=== PATIENT | male | born 1960 | race Caucasian/White ===

== ENCOUNTER → 2024-06-11 | Outpatient (CLI) | payer BC ==
--- NOTE | 2024-06-13 12:49 | MR ---
EXAMINATION TYPE: MR shoulder RT wo con DATE OF EXAM: 06/11/2024 COMPARISON: None. HISTORY: right shoulder pain TECHNIQUE: Multiplanar, multisequence imaging of the right shoulder is performed without contrast. FINDINGS: Suboptimal secondary to motion. Rotator Cuff: Intact supraspinatus and infraspinatus tendons. Intact subscapularis tendon. Rotator cu ff muscle bulk is preserved. Acromioclavicular Joint: Moderate narrowing and capsular hypertrophy. Loss of underlying plate noted axial image 14 for reference. Glenohumeral Joint: No significant effusion. No significant spurring. Labrum: The labrum appears grossly intact given limitation of non-arthrogram study. Biceps Tendon: The long head of biceps is in normal location within bicipital groove. Bone marrow signal: Increased signal superolateral aspect of the humeral head. Other: No additional significant abnormality is appreciated. IMPRESSION: 1. Moderate AC joint arthropathy with suggestion of underlying impingement. Correlate clinically. 2. No rotator cuff or labral tear is seen. [facility], , 06/13/2024 12:47 PM
== END | disposition home or self-care (01) ==
LOC: RADMRIMAIN 20:15
PROVIDERS: ATTEND Orthopaedic Surgery
DX: M25.511 Pain in right shoulder